=== PATIENT | male | born 1930 | race Caucasian/White ===

== ENCOUNTER 2016-10-17 13:38 | Inpatient (IN) ==
[2016-10-17] MEDS ORDERED: TYLENOL PO PRN (14:13)
[2016-10-17] MEDS ORDERED: NS 1,000 ML IV SCH (14:17)
[2016-10-17] MEDS ORDERED: ZOFRAN IV PRN (14:27)
[2016-10-17 14:48] LABS: MANUAL DIFF NEEDED? NO
[2016-10-17] MEDS: DUONEB (A & A) INH SCH ×3 (14:50→22:51)
[2016-10-17 14:51] LABS: BASO% 0.4 % (0.0-0.8); EOS# 0.04 X1000 (0.0-0.7); EOS% 0.5 % (0.0-10.0); HEMATOCRIT 44.4 % (42.0-52.0); HEMOGLOBIN 14.8 g/dL (14.0-18.0); IMM GRAN# 0.01 X1000 (0.0-0.04); IMM GRAN% 0.1 % (0.0-0.5); LYMPH# 2.26 X1000 (1.2-3.4); MCH 31.7 PG (27-31); MCHC 33.3 g/dL (33-37); MCV 95.1 FL (81-99); MONO% 10.6 % (1.7-9.3); MPV 11.9 FL (7.4-10.4); NEUT% 58.4 % (42.2-75.2); PLT 129 X1000 (130-400); RBC 4.67 XMIL (4.7-6.1)
--- NOTE | 2016-10-17 14:53 | Diag Imaging Result Doc PS360 ---
EXAM: CHEST-2 VIEWS HISTORY: Pneumonia TECHNIQUE: PA and lateral chest COMMENT: There is still some ill-defined opacity over the lower left chest and fibrotic appearing opacities present in the right lower chest particularly laterally. Some slight decrease in the opacification of the left lower lobe has occurred since 09/27/2015, however some of this may be due to differences in inspiration. IMPRESSION: Pleural and parenchymal fibrosis. Electronically signed by Orestes Carpio 10/17/2016 2:51 PM
--- NOTE | 2016-10-17 15:05 | HISTORY AND PHYSICAL ---
PRIMARY CARE PHYSICIAN: Dr. Valiente. CHIEF COMPLAINT: Sent from his primary care physician's office for a left lower lobe pneumonia. HISTORY OF PRESENTING ILLNESS: This is an 86-year-old morbidly obese, male, who presents from his primary care physician's office today when he states that he had been at home for the past couple of days worsening with a cough, nonproductive primarily, shortness of breath, subjective fever. When he got to his primary care physician's office they did a chest x-ray and some blood work. The chest x-ray was read by the physician in the office as a left lower lobe pneumonia and so he felt that he needed to be a direct admitted to the hospital for further evaluation and treatment. Currently we do not have any workup at this time. PAST MEDICAL HISTORY: Rheumatoid arthritis, coronary artery disease, osteoarthritis, hypertension, and hyperlipidemia. PAST SURGICAL HISTORY: Skin cancer removal. FAMILY HISTORY: Noncontributory. SOCIAL HISTORY: Currently lives with . Denied any tobacco, alcohol, or illicit drug use. ALLERGIES: Codeine, penicillin, erythromycin, and streptomycin. HOME MEDICATIONS: A current list will be obtained and we will restart those as appropriate. LABORATORY DATA: Will be obtained as a CBC, CMP, 2 view chest x-ray, blood cultures x2, and a sputum culture. REVIEW OF SYSTEMS: He was positive for a subjective fever, cough nonproductive , shortness of breath. Denied any blurred vision, dizziness, chest pain, abdominal pain, constipation, diarrhea, burning or hurting with urination. PHYSICAL EXAMINATION: VITAL SIGNS: On arrival, he had a temperature of 98.3 degrees, pulse 69, respirations 18, blood pressure 155/91, saturating 100% on room air. GENERAL: This is an 86-year-old morbidly obese, male, who is lying in the bed, and answers questions appropriately. HEENT: Normocephalic and atraumatic. Pupils are equal, round, and reactive to light. Extraocular movements are intact. Oropharynx and nares are clear. NECK: Supple. LUNGS: With wheezing throughout entire posterior lung horne. Equal lung expansion and chest wall movement noted. HEART: Regular rate and rhythm. No murmurs, rubs, or gallops. ABDOMEN: Soft, nontender, nondistended. Bowel sounds are present x4 quadrants. EXTREMITIES: No clubbing, cyanosis, or edema. NEUROLOGICAL: The cranial nerves 2-12 appear grossly intact. ASSESSMENT: 1. A left lower lobe pneumonia per chest x-ray at primary care physician's office today. 2. Dyspnea. 3. Cough. 4. Hypertension. Further diagnosis is after obtaining the laboratory and x-ray data. PLAN: He has been admitted to the medical unit. Placed on telemetry. O2 per protocol. Healthy heart diet. We will obtain a CBC, CMP, sputum culture, blood cultures x2, 2- view chest x-ray. We will place on Levaquin 750 mg IV q.24h, DuoNeb q.4h, normal saline at 50 mL an hour, and Tylenol 650 mg p.o. q.4h p.r.n., Zofran 4 mg IV q.4h p.r.n., and further orders pending review of laboratory data and x-ray. Dictated by NEELAM Hinojosa for Missael Bryant MD cc: NEELAM Hinojosa MD Thomas E. Lockard, DO will pursue chest CT, because his chest Xray just shows fibrosis and not clear pneumonia, this may be why he has not improved, otherwise agree with above APENOT MTDD
[2016-10-17 15:14] LABS: ALBUMIN 4.1 g/dL (3.5-5.0); POTASSIUM 4.8 mmol/L (3.5-5.1); TOTAL BILIRUBIN 0.4 mg/dL (0.20-1.00); TOTAL PROTEIN 7.1 g/dL (6.3-8.3)
[2016-10-17] MEDS: ROCEPHIN 1 GM/NS 1 GM/50 ML IVPB IV SCH (16:23)
[2016-10-17] MEDS: LEVAQUIN 750 MG/D5W 750 MG/150 ML IVPB IV SCH (18:17)
[2016-10-17] MEDS ORDERED: LASIX PO PRN (19:43)
[2016-10-17] MEDS ORDERED: ZANAFLEX PO PRN (19:54)
[2016-10-17] MEDS: TOPROL XL PO SCH (20:19)
[2016-10-17] MEDS: FISH OIL CONCENTRATE PO SCH (20:19)
[2016-10-17] MEDS: VITAMIN C PO SCH (20:19)
[2016-10-18] MEDS: DUONEB (A & A) INH SCH ×5 (03:04→20:02)
[2016-10-18 05:59] LABS: HEMATOCRIT 41.4 % (42.0-52.0); HEMOGLOBIN 13.3 g/dL (14.0-18.0); MCH 30.7 PG (27-31); MCHC 32.1 g/dL (33-37); MCV 95.6 FL (81-99); MPV 11.9 FL (7.4-10.4); RBC 4.33 XMIL (4.7-6.1)
[2016-10-18 06:05] LABS: CALCIUM 8.6 mg/dL (8.8-10.2); POTASSIUM 4.1 mmol/L (3.5-5.1)
--- NOTE | 2016-10-18 08:34 | Diag Imaging Result Doc PS360 ---
EXAM: CT THORAX W/CONTRAST HISTORY: pneumonia TECHNIQUE: Images were obtained from the lung apices through bases following IV contrast as per standard protocol. COMPARISON: 04/14/2015 FINDINGS: There are peripheral increased reticular markings some associated with honeycombing consistent with pulmonary fibrosis. This is most marked within the left upper lobe, peripheral right middle lobe, and posterior lower lobes. This is not significantly changed when compared with prior study and may actually appear slightly improved due to improved inspiration. No pleural effusions or pneumothorax. There is stable mild mediastinal lymphadenopathy. No evidence for aortic aneurysm or dissection. There is vascular calcification including coronary artery calcification. No parenchymal masses or new areas of consolidation are identified. IMPRESSION: Stable pulmonary fibrosis. Stable mild lymphadenopathy. No evidence for acute pneumonia. Electronically signed by Jocelin Rivera 10/18/2016 8:32 AM
[2016-10-18] MEDS: TOPROL XL PO SCH ×2 (08:43→21:08)
[2016-10-18] MEDS: FISH OIL CONCENTRATE PO SCH ×2 (08:43→21:08)
[2016-10-18] MEDS: VITAMIN C PO SCH ×2 (08:43→21:08)
[2016-10-18] MEDS: TRICOR PO SCH (08:43)
[2016-10-18] MEDS ORDERED: SOLU-MEDROL IV SCH (09:45)
--- NOTE | 2016-10-18 10:53 | PROGRESS NOTE ---
DATE: 10/18/2016 SUBJECTIVE: The patient resting quietly in bed. OBJECTIVE: Vital Signs: Temperature 98.2 degrees, pulse 84, respirations 18, blood pressure 125/71, satting 100% on room air. General: This is an 86-year-old male, who is lying in the bed, answers questions appropriately. HEENT: Normocephalic and atraumatic. Pupils are equal, round and reactive to light. Extraocular movements are intact. The oropharynx and nares are clear. Neck: Supple. Lungs: With wheezing throughout entire posterior lung horne, maybe slightly improved from admission yesterday. Has a dry nonproductive cough with deep breaths. Equal lung expansion chest wall movement noted. Heart: With regular rate and rhythm. No murmurs, rubs, or gallops. Abdomen: Soft, nontender, nondistended. Bowel sounds are present x4 quadrants. Extremities: No clubbing, cyanosis, or edema. Neurological: The cranial nerves 2-12 are grossly intact. LABORATORY/IMAGING DATA: Shows a white blood cell count of 5.74, hemoglobin 13.3, hematocrit 41.4, platelets 123. Sodium of 136, potassium 4.1, chloride 102, CO2 24, BUN of 21, creatinine 1.5, glucose of 91. He had a chest x-ray yesterday that we did not have the results of when he arrived yesterday that showed an impression of pleural and parenchymal fibrosis. Comment states that there is still some ill-defined opacity over the left lower chest and fibrotic-appearing opacities present in the right lower chest particularly laterally. So, we did a chest CT this morning that just showed an impression of stable pulmonary fibrosis, stable mild lymphadenopathy and no evidence for an acute pneumonia. ASSESSMENT/PLAN: 1. Bronchitis. It was initially felt that the patient may have a left lower lobe pneumonia, but according to x-ray reports there is no definite pneumonia. The patient does not have a history of tobacco use according to him, so we will treat this as a bronchitis. At this time we will continue his intravenous antibiotics and breathing treatments. Will add some Solu- Medrol 80 mg intravenous every 8 hours and recheck labs in the morning. Continue his intravenous antibiotics. 2. Acute kidney injury. Will increase his normal saline from 50 mL an hour to 75 mL an hour, and recheck a basic metabolic panel in the morning. 3. Hypertension. We will continue his current medication regimen. 4. Hyperlipidemia. Aware. We will continue medication regimen. Dictated by NEELAM Hinojosa for Missael Bryant MD cc: NEELAM Hinojosa MD pt examined, agree with above APENOT MTDD
[2016-10-18] MEDS: NS 1,000 ML IV SCH (11:33)
[2016-10-18] MEDS ORDERED: LOVENOX SUBQ SCH (14:30)
[2016-10-18] MEDS: LEVAQUIN 750 MG/D5W 750 MG/150 ML IVPB IV SCH (16:29)
[2016-10-18] MEDS: ROCEPHIN 1 GM/NS 1 GM/50 ML IVPB IV SCH (16:29)
[2016-10-18] MEDS: SOLU-MEDROL IV SCH (19:53)
[2016-10-18] MEDS: PRAVACHOL PO SCH (21:08)
[2016-10-19] MEDS: DUONEB (A & A) INH SCH ×7 (01:17→22:15)
[2016-10-19] MEDS: MUCOMYST 20% SCH (01:18)
[2016-10-19] MEDS: NS 1,000 ML IV SCH (02:19)
[2016-10-19] MEDS: SOLU-MEDROL IV SCH ×3 (03:47→20:43)
[2016-10-19 06:11] LABS: MANUAL DIFF NEEDED? NO
[2016-10-19 06:28] LABS: HEMATOCRIT 41.9 % (42.0-52.0); HEMOGLOBIN 13.5 g/dL (14.0-18.0); IMM GRAN# 0.01 X1000 (0.0-0.04); IMM GRAN% 0.2 % (0.0-0.5); LYMPH# 0.78 X1000 (1.2-3.4); LYMPH% 14.7 % (20.5-51.1); MCH 30.5 PG (27-31); MCHC 32.2 g/dL (33-37); MCV 94.6 FL (81-99); MONO# 0.21 X1000 (0.11-0.59); MPV 11.5 FL (7.4-10.4); NEUT% 81.1 % (42.2-75.2); PLT 126 X1000 (130-400); RBC 4.43 XMIL (4.7-6.1)
[2016-10-19 06:51] LABS: AGAP 11; BUN 20 mg/dL (8-22); CALCIUM 8.9 mg/dL (8.8-10.2); CHLORIDE 108 mmol/L (98-107); COSMO 288; POTASSIUM 4.4 mmol/L (3.5-5.1); SODIUM 142 mmol/L (136-145); TCO2 23 mmol/L (25-35)
[2016-10-19] MEDS: FISH OIL CONCENTRATE PO SCH ×2 (10:09→20:46)
[2016-10-19] MEDS: TRICOR PO SCH (10:09)
[2016-10-19] MEDS: VITAMIN C PO SCH ×2 (10:09→20:46)
[2016-10-19] MEDS: TOPROL XL PO SCH ×2 (10:10→20:47)
--- NOTE | 2016-10-19 13:58 | PROGRESS NOTE ---
DATE: 10/19/2016 SUBJECTIVE: Patient has some flushing but overall breathing has improved. OBJECTIVE: Vital signs: Blood pressure 154/87, heart rate 96, respiratory rate 16, temperature 98.3 degrees, 97% on room air. Cardiovascular: Regular rate and rhythm. Pulmonary: Bilateral breath sounds. Clear to auscultation. GI: Soft, nontender, nondistended. Bowel sounds are positive. LABORATORY DATA: White count 5, hemoglobin and hematocrit are 13 and 41, platelets of 126,000. Basic looked okay. PROBLEM LIST: 1. Chronic obstructive pulmonary disease exacerbation. Clinically, he is stabilizing. He seems to be doing okay from that standpoint. 2. Pulmonary fibrosis. He is on steroids, antibiotics, and seems to be doing somewhat better. He specifically described checking him for heart failure. His proBNP is unremarkable or at least it is negative and he had a chest echo I think a couple months ago per his primary mobility architect, who is Dr. Rhodes. He had an echo in June which actually showed a normal EF 60 to 65% with really no significant valvular abnormality so I do not think he has heart failure. 3. Disposition. I think if he is clinically stable in to tomorrow he should be able to go home. cc: Missael Bryant MD
[2016-10-19] MEDS: ROCEPHIN 1 GM/NS 1 GM/50 ML IVPB IV SCH (15:47)
[2016-10-19] MEDS: LEVAQUIN 750 MG/D5W 750 MG/150 ML IVPB IV SCH (17:10)
[2016-10-19] MEDS: MUCINEX PO SCH (20:45)
[2016-10-19] MEDS: NEO-SYNEPHRINE 1% NASAL SPRAY NAS SCH (20:45)
[2016-10-19] MEDS: PRAVACHOL PO SCH (20:46)
[2016-10-20] MEDS: CLARITIN PO SCH ×2 (00:39→09:19)
[2016-10-20] MEDS: DUONEB (A & A) INH SCH ×3 (03:30→15:53)
[2016-10-20] MEDS: SOLU-MEDROL IV SCH ×2 (05:28→11:36)
[2016-10-20 07:00] LABS: HEMATOCRIT 44.2 % (42.0-52.0); HEMOGLOBIN 14.2 g/dL (14.0-18.0); MCH 30.6 PG (27-31); MCHC 32.1 g/dL (33-37); MCV 95.3 FL (81-99); MPV 11.4 FL (7.4-10.4); RBC 4.64 XMIL (4.7-6.1)
[2016-10-20] MEDS ORDERED: ARIXTRA SUBQ SCH (09:00)
[2016-10-20] MEDS: MUCINEX PO SCH (09:19)
[2016-10-20] MEDS: TOPROL XL PO SCH (09:19)
[2016-10-20] MEDS: FISH OIL CONCENTRATE PO SCH (09:19)
[2016-10-20] MEDS: VITAMIN C PO SCH (09:19)
[2016-10-20] MEDS: TRICOR PO SCH (09:19)
[2016-10-20] MEDS: NEO-SYNEPHRINE 1% NASAL SPRAY NAS SCH (09:22)
[2016-10-20] MEDS: MUCOMYST 20% SCH (12:11)
[2016-10-20 15:29] VITALS: BP 167/80
[2016-10-20] MEDS: ROCEPHIN 1 GM/NS 1 GM/50 ML IVPB IV SCH (15:43)
[2016-10-20] MEDS: LEVAQUIN 750 MG/D5W 750 MG/150 ML IVPB IV SCH (16:42)
--- NOTE | 2016-10-21 09:05 | DISCHARGE SUMMARY ---
ADMISSION DATE: 10/17/2016 DISCHARGE DATE: 10/20/2016 DISCHARGE DIAGNOSES: 1. Pulmonary fibrosis with likely exacerbation. 2. Chronic obstructive pulmonary disease exacerbation with bronchitis. 3. History of rheumatoid arthritis. 4. Hypertension. HISTORY OF PRESENT ILLNESS AND HOSPITAL COURSE: Briefly, this is an 86-year-old male who was a direct admit from Dr. Valiente for pneumonia, failing outpatient therapy. He had progressive shortness of breath. He was placed in the hospital on IV antibiotics, namely Levaquin and Rocephin, and he had a chest x-ray which was read here on the , as pulmonary fibrosis and no pneumonia. We progressed to a chest CT on the , which showed stable pulmonary fibrosis, stable mild lymphadenopathy but no acute pneumonia, and that was on the . He slowly clinically improved. He did have some intermittent wheezing. We had him on some steroids and breathing treatments. He had a little bit of acute kidney injury with a creatinine that went up to 1.5, but improved with hydration. On the day of discharge, which was the , he had clear breath sounds. No wheezing. GI was soft, nontender, nondistended. He was afebrile. He did have some mild leukocytosis at 13.6, but he had been on steroids for several days, and I felt like that was likely the contributor. Clinically, he had really stabilized. He did have a little bit of drop in his platelet count, but on the day of discharge, his platelet count was normal at 153. DISCHARGE MEDS: O[place]cia, per previous recommendations; vitamin C 500 b.i.d.; aspirin 325 daily; Omnicef 300 p.o. b.i.d.; fenofibrate 145 daily; Lasix 20 daily; Toprol-XL 50 b.i.d.; [place] acids 1 b.i.d.; Pravachol 40 daily, and a prednisone taper. I think he was also on DuoNeb as an outpatient. I am going to give him a Combivent inhaler and we will follow. FOLLOWUP: He is to follow up, he has a airplane pilot, I believe in [place], in about 15 minutes, so he was encouraged to follow up with that physician to re-evaluate his pulmonary fibrosis and Dr. Valiente. TIME SPENT: A 32-minute discharge. cc: Missael Bryant MD
== END 2016-10-20 18:37 | disposition home or self-care (01) ==
LOC: P.DIRADM 13:38 → P.MEDSURG 13:41
PROVIDERS: ATTEND Internal Medicine

== ENCOUNTER 2019-03-29 09:12 | Inpatient (IN) ==
[2019-03-29] MEDS ORDERED: CATAPRES PO ONE (09:38)
[2019-03-29 10:11] LABS: URINE SOURCE CLEAN CATCH
--- NOTE | 2019-03-29 10:11 | PROVIDER DOCUMENTATION ---
HPI-General Adult - General Chief Complaint: B/P Problems Stated Complaint: REVISIT / RETURN Time Seen by Provider: 03/29/19 09:30 Source: patient, family Allergies/Adverse Reactions: Patient Allergies Allergy/AdvReac Type Severity Reaction Status Date / Time codeine Allergy Mild HEADACHE Verified 06/11/17 13:58 Penicillins Allergy Mild Unknown Verified 06/11/17 13:58 erythromycin base Allergy Unknown UN Verified 06/11/17 13:58 [Erythromycin Base] streptomycin [Streptomycin] Allergy Unknown UN Verified 06/11/17 13:58 Home Medications: Home Medication List Medication Instructions Recorded Confirmed Last Taken Type Aspirin 81 mg PO DAILY 03/06/13 06/11/17 06/11/17 07:00 History Fenofibrate Nanocrystallized 145 mg PO DAILY 09/17/15 06/11/17 10/17/16 History [Tricor] Furosemide [Lasix] 40 mg PO DAILY PRN 09/17/15 06/11/17 06/11/17 07:00 History [place]-3 Fatty Acids/Fish Oil [Fish 1 cap PO BID 10/17/16 06/11/17 06/11/17 07:00 History Oil 1,000 mg Capsule] D-Methorphan/P-Epd/Bpm [Bromfed Dm 5 ml PO Q4H PRN #120 ml 02/24/17 06/11/17 Unknown Rx Liquid] Fluticasone 50 Mcg Nasal [place] 1 spray DENISE DAILY 02/24/17 06/11/17 Unknown History [Flonase] Losartan Potassium 50 mg PO DAILY 02/24/17 06/11/17 06/11/17 06:30 History Potassium Chloride 10 meq PO DAILY 02/24/17 06/11/17 06/10/17 07:00 History Meloxicam [Mobic] 15 mg PO DAILY 06/11/17 06/11/17 06/11/17 07:00 History Lactulose 30 ml PO BID #120 udc 06/14/17 Unknown Rx Metoprolol Succinate [Toprol Xl] 50 mg PO BID #60 tab.er.24h 06/14/17 Unknown Rx Hydrocodone/APAP 5 mg/325 mg 1 - 2 tab PO Q6H PRN PRN #18 tab 03/24/19 Unknown Rx [[place]-5] - History of Present Illness -Gen Adult Nature of Presenting Problems: [id number] presents to the ER with c/o increased B/P reading for the past week. This is his second visit to the ER. He was seen on 03/24 for the same problem. He is c/o dizziness and HENRY. He also reports subconjuctival hemorrhaging that appeared yesterday in his left eye. B/P on arrival was 225/109 in triage. He states he saw his PCP on and was started on Lisinopril 20mg BID in addition to his metoprolol and losartan. He reports increased swelling and edema. He denies any CP, SOB, or other anginal equivalence. Location of Pain/Injury: reports: head, generalized Onset/Duration: reports: 1 week ago Associated Symptoms: reports: dizziness, headaches, other Similar Symptoms Previously?: Yes Recently seen or treated by another doctor?: Yes Review of Systems - Adult - REVIEW OF SYSTEMS - ADULT Constitutional: reports: see HPI. denies: chills, fever Eyes: reports: see HPI. denies: decreased vision, blurred vision, double vision Ears, Nose, Mouth & Throat: reports: no symptoms reported Cardiovascular: reports: see HPI, edema (+2). denies: chest pain, orthopnea, palpitations, syncope Respiratory: reports: no symptoms reported. denies: chronic cough, cough, dyspnea on exertion, wheezing Gastrointestinal: reports: see HPI. denies: abdominal pain, diarrhea, nausea, vomiting Genitourinary: reports: no symptoms reported, frequent UTI's, urinary retention Musculoskeletal: reports: no symptoms reported Integumentary: reports: no symptoms reported Neurological: reports: see HPI, dizziness/vertigo, headache/migraines Psychiatric: reports: no symptoms reported Endocrine: reports: no symptoms reported Hematologic/Lymphatic: reports: no symptoms reported Allergic/Immunologic: reports: no symptoms reported All Other Systems: Reviewed and Negative Past History - Adult - PAST MEDICAL HISTORY-ADULT Review of Records: reports: Old Records Reviewed, Nursing Assessment Review, Medications Reviewed, Social history reviewed & non-contributory. Major Childhood Illnesses: reports: denies history Cardiovascular: reports: CAD, HTN, hyperlipidemia, [place] Respiratory: reports: COPD Gastrointestinal: reports: denies history Obstetrical/Gynecological: reports: denies history Genitourinary: reports: denies history Musculoskeletal: reports: denies history Neurological: reports: denies history Endocrine/Immune: reports: Diabetes Other Conditions: reports: other cancer (skin) - PRIOR SURGERIES/PROCEDURES Surgical/Procedure History: reports: cardiac stent, other - PRIOR HOSPITALIZATIONS Prior Hospitalizations: reports: for similar symptoms - IMMUNIZATION STATUS Childhood Immunizations: See Nurse Assessment Flu Vaccine: See Nurse Assessment - FAMILY HISTORY Family History: reviewed, not pertinent - SOCIAL HISTORY Smoking: denies Substance Use: denies Living Situation: family Physical Exam-General - PHYSICAL EXAM-ADULT Initial Vital Signs Reviewed: Yes - CONSTITUTIONAL General Appearance: alert, mild distress - EYES Eyes: PERRL/EOMI, subconjunctival hemorrhage (left eye) - HEAD, EARS, NOSE, MOUTH & THROAT HENMT: normocephalic/atraumatic, moist mucous membranes, TMs normal - NECK Neck: full range of motion, supple. negative: lymphadenopathy - RESPIRATORY Respiratory: lungs clear, normal breath sounds - CARDIOVASCULAR Cardiovascular: regular rate, rhythm. negative: no edema (+2, +3 pitting lower extremity) - GASTROINTESTINAL (ABDOMEN) Abdominal Exam: non tender, soft - SKIN Integumentary: normal color, warm/dry - NEUROLOGIC Neurologic: grossly normal - PSYCHIATRIC Psych/Mental Status: normal thought content, normal thought process Progress - PLAN OF CARE/RESULTS Progress/Plan/Lab Results: Vital Signs - 8 hr 03/29/19 09:18 Temperature 98 F Pulse Rate 72 Respiratory Rate 18 Blood Pressure 225/109 O2 Sat by Pulse Oximetry 96 Orders Category Date Time Status Nursing- Obtain EKG ONCE Care 03/29/19 09:42 Active CHEST-2 VIEWS [RAD] Stat Exams 03/29/19 09:42 Ordered BNP [PRO B-NATRIURETIC PEPTIDE] Stat Lab 03/29/19 10:07 Uncollected CBC WITH ELECTRONIC DIFF [HEME] Stat Lab 03/29/19 10:01 Ordered CK PROFILE [SP CHEM] Stat Lab 03/29/19 09:42 Ordered CK TOTAL [CHEM] Stat Lab 03/29/19 09:42 Ordered COMPREHENSIVE METABOLIC PANEL [CHEM] Stat Lab 03/29/19 10:01 Ordered FREE T4 Stat Lab 03/29/19 10:01 Ordered MAGNESIUM [CHEM] Stat Lab 03/29/19 10:01 Ordered PHOSPHORUS [CHEM] Stat Lab 03/29/19 09:42 Ordered TROPONIN T HIGH SENSITIVITY Stat Lab 03/29/19 10:01 Ordered TSH Stat Lab 03/29/19 10:01 Ordered UA NIMS W/REFLEX CULT [URINALYSIS] Stat Lab 03/29/19 10:01 Ordered URINE DRUG SCREEN PL Stat Lab 03/29/19 10:01 Ordered Clonidine [Catapres] Med 03/29/19 09:38 Discontinued 0.2 mg PO NOW ONE EKG [EKG] Stat Ther 03/29/19 09:42 Ordered patient to be admitted. Result Diagrams: 03/29/19 10:04 03/29/19 10:04 - XRAY 1 XRAY Study: Chest Impression: See EMR Report ( FINDINGS: There is cardiomegaly and pulmonary vascular congestion. There is hazy interstitial infiltrate diffusely and bilaterally stable from prior. No new consolidations. No significant pleural effusion. IMPRESSION: No change from prior. Pulmonary edema versus fibrosis.) - CONSULTS/PCP/HOSPITALIST Notification #1 *Consult/PCP/Hospitalist*: Dr Méndez Time Discussed: 10:23 Reason/Comments: persistent elevated BP, SOB, weakness Consult Disposition: Admit Departure - Departure Date of Disposition Decision: 03/29/19 Time of Disposition Decision: 13:12 DIAGNOSIS: Pulmonary edema, Weakness generalized Hypertension Qualifiers: Hypertension type: unspecified Qualified Code(s): I10 - Essential (primary) hypertension Disposition: ADMITTED INPATIENT 09 Certified Medical Emergency: Emergent Condition: Critical Referrals and Follow-Ups: Rg Valiente DO [Primary Care Provider] - - Critical Care Note This patient required my direct & personal management of CC.: No Attestation - Physician/ SOHAM Attestation Patient care was provided by Advanced Practice Provider:: Yes Advanced Practice Provider:: Sky Nieves Advanced Practice Provider documentation review:: The Mid-level provider documentation, treatment plan and medical decision making was reviewed by the kandy edmond who agrees with all treatment and medical decision making by the MLP. The physician spent face to face time with patient:: No Advanced Practice Provider documentation review:: Supervising physician onsite and consulted in the evaluation and care of this patient. The physician did not have a face to face encounter with the patient.
[2019-03-29 10:25] LABS: BILIRUBIN URINE NEGATIVE (NEGATIVE); BLOOD URINE NEGATIVE (NEGATIVE); COLOR YELLOW; GLUCOSE URINE NEGATIVE (NEGATIVE); KETONE URINE NEGATIVE (NEGATIVE); LEUKOCYTES URINE NEGATIVE (NEGATIVE); NITRITE URINE NEGATIVE (NEGATIVE); PH URINE 6.5; PROTEIN URINE NEGATIVE (NEGATIVE); SP GRAVITY URINE 1.008; TURBIDITY URINE CLEAR (CLEAR); UROBILINOGEN URINE NORMAL (NORMAL)
[2019-03-29 10:27] LABS: UR EPITHELIAL CELLS <10 /HPF (<10); URINE BACTERIA NEGATIVE /HPF; URINE RBC <10 /HPF (<10); URINE WBC <10 /HPF (<10)
[2019-03-29 10:41] LABS: BASO# 0.03 X1000 (0.0-0.2); BASO% 0.3 % (0.0-0.8); EOS# 0.01 X1000 (0.0-0.7); EOS% 0.1 % (0.0-10.0); HEMATOCRIT 39.4 % (42.0-52.0); HEMOGLOBIN 11.9 g/dL (14.0-18.0); IMM GRAN# 0.05 X1000 (0.0-0.04); IMM GRAN% 0.5 % (0.0-0.5); LYMPH# 1.48 X1000 (1.2-3.4); LYMPH% 14.4 % (20.5-51.1); MCHC 30.2 g/dL (33-37); MCV 92.7 FL (81-99); MONO# 0.74 X1000 (0.11-0.59); MONO% 7.2 % (1.7-9.3); MPV 10.8 FL (7.4-10.4); NEUT# 7.94 X1000 (1.4-6.5); NEUT% 77.5 % (42.2-75.2); PLT 258 X1000 (130-400); RBC 4.25 XMIL (4.7-6.1); RDW 16.3 % (11.5-14.5); WBC 10.25 X1000 (4.8-10.8)
[2019-03-29 10:42] LABS: UR AMPHETAMINES QUAL NONE DETECTED (NONE DETECT); UR BARBITUATES QUAL NONE DETECTED (NONE DETECT); UR BENZODIAZEPIN QUAL NONE DETECTED (NONE DETECT); UR CANNABINOIDS QUAL NONE DETECTED (NONE DETECT); UR COCAINE QUAL NONE DETECTED (NONE DETECT); UR METHADONE QUAL NONE DETECTED (NONE DETECT); UR METHAMPHETAMINE QUAL NONE DETECTED (NONE DETECT); UR OPIATES QUAL PRESUMPTIVE POSITIVE (NONE DETECT); UR OXYCODONE QUAL NONE DETECTED (NONE DETECT); UR PCP QUAL NONE DETECTED (NONE DETECT); UR PROPOXYPHENE QUAL NONE DETECTED (NONE DETECT); UR TCA QUAL NONE DETECTED (NONE DETECT)
[2019-03-29 11:03] LABS: AGAP 13; ALBUMIN 3.8 g/dL (3.5-5.0); ALKALINE PHOSPHATASE 69 U/L (32-122); BUN 21 mg/dL (8-22); CHLORIDE 104 mmol/L (98-107); COSMO 288; CREATININE 0.8 mg/dL (0.7-1.2); ESTIMATED GFR > 60; GLUCOSE 96 mg/dL (70-104); GOT 18 U/L (10-34); GPT 15 U/L (10-44); MAGNESIUM 1.9 mg/dL (1.5-2.7); POTASSIUM 3.9 mmol/L (3.5-5.1); SODIUM 143 mmol/L (136-145); TCO2 26 mmol/L (25-35); TOTAL PROTEIN 6.4 g/dL (6.3-8.3)
[2019-03-29] MEDS ORDERED: LASIX IV ONE (12:07)
[2019-03-29 12:10] LABS: FREE T4 1.51 ng/dL (0.93-1.70); TSH 2.56 uIUmL (0.27-4.20)
--- NOTE | 2019-03-29 12:17 | EKG Report ---
Test Performed on : 03/29/2019 11:55:34 AM Test Reason : cp Blood Pressure : / mmHG Vent. Rate : 062 BPM Atrial Rate : 062 BPM P-R Int : 144 ms QRS Dur : 070 ms QT Int : 394 ms P-R-T Axes : 015 012 033 degrees QTc Int : 399 ms Normal sinus rhythm. Normal ECG When compared with ECG of 24-MAR-2019 15:21, (Unconfirmed) No significant change was found Unconfirmed Result
[2019-03-29] MEDS ORDERED: APRESOLINE IV PRN (12:33)
[2019-03-29] MEDS ORDERED: APRESOLINE IV ONE (12:33)
[2019-03-29] MEDS ORDERED: HYZAAR 50/12.5 MG PO ONE (12:40)
[2019-03-29] MEDS ORDERED: HYDROCHLOROTHIAZIDE PO ONE (13:00)
--- NOTE | 2019-03-29 13:02 | Diag Imaging Result Doc PS360 ---
CHEST-PORTABLE - 03/29/2019 INDICATION: edema COMPARISON: 03/24/2019 FINDINGS: There is cardiomegaly and pulmonary vascular congestion. There is hazy interstitial infiltrate diffusely and bilaterally stable from prior. No new consolidations. No significant pleural effusion. IMPRESSION: No change from prior. Pulmonary edema versus fibrosis. Electronically signed by King Hare 03/29/2019 1:00 PM
--- NOTE | 2019-03-29 20:42 | HISTORY AND PHYSICAL ---
CHIEF COMPLAINT: Hypertension. HISTORY OF PRESENT ILLNESS: The patient is an 88-year-old male who presented to the hospital with markedly elevated blood pressures. He states at home his blood pressure last week was 120 to 130; however, upon arrival today was 225/109. He was seen 2 days ago and blood pressure also was markedly elevated. He apparently has had some subconjunctival hemorrhaging over the past day in his left eye. He was seen by his primary care. He was started on lisinopril 20 b.i.d. in addition to his metoprolol, and I believe losartan. The family notes he has had increased swelling in his lower extremities. The patient himself denies any chest pain, shortness of breath. Actually denies swelling unless specifically asked. ALLERGIES: Codeine, penicillin, erythromycin. MEDICATIONS: Aspirin, fenofibrate 145, Lasix 40, omega-3 fatty acid, losartan 50, potassium, Mobic, lactulose, metoprolol, and [place]. REVIEW OF SYSTEMS: The patient does note that he has frequent urinary tract infections. He does state that he has swelling in his lower extremities on a regular basis. Blood pressures at home typically are 120s to 130s systolic. Per the patient, that is what they were last week. He denies any headaches, blurred vision or change in his vision currently. Denies any focalized numbness, tingling or weakness. Denies any fevers or chills. He does note that he has had some back pain that he was told was arthritis and a pulled muscle. He has been generally weak over the past several days to a week. Denies dysuria. No frequency, urgency, constipation, melena or hematochezia. PAST MEDICAL HISTORY: Coronary artery disease, hypertension, hyperlipidemia, COPD, diabetes, history of skin cancer. He has had cardiac stenting. FAMILY HISTORY: Positive for hypertension. SOCIAL HISTORY: The patient does not smoke, drink or use illicit substances. PHYSICAL EXAMINATION: VITAL SIGNS: Reviewed. Temperature 98 degrees, pulse 72, respiratory rate 18, BP 225/109 to 167/109. GENERAL: The patient is awake, alert. He is in no respiratory distress, seems oriented. HEENT: Normocephalic. NECK: Supple. CARDIOVASCULAR: Regular rate. No murmurs. CHEST: Clear, nonlabored. No wheezing. ABDOMEN: Soft, nondistended, nontender. EXTREMITIES: Moves all extremities. He does have 2+ pitting edema in his bilateral lower extremities. NEUROLOGIC: No changes. ASSESSMENT: 1. Hypertensive urgency. 2. Congestive heart failure with what appears to be an exacerbation. He has 2+ edema in his lower extremities 3. Known coronary artery disease. 4. Chronic obstructive pulmonary disease. 5. Diabetes. PLAN: We are going to admit the patient to the hospital. IV Lasix, place him on blood pressure control, place him on telemetry, get Physical Therapy involved for his frequent falls, and we will follow. cc: Eduardo Méndez MD
[2019-03-30 06:13] LABS: HEMOGLOBIN 12.9 g/dL (14.0-18.0); MCH 29.1 PG (27-31); MCHC 31.5 g/dL (33-37); MCV 92.3 FL (81-99); MPV 10.4 FL (7.4-10.4); RBC 4.44 XMIL (4.7-6.1); RDW 16.4 % (11.5-14.5); WBC 9.48 X1000 (4.8-10.8)
[2019-03-30 07:11] LABS: AGAP 14; ALB/GLOB RATIO 0.9; ALKALINE PHOSPHATASE 60 U/L (32-122); BUN 26 mg/dL (8-22); CALCIUM 8.6 mg/dL (8.8-10.2); CHLORIDE 100 mmol/L (98-107); COSMO 286; ESTIMATED GFR > 60; GLUCOSE 93 mg/dL (70-104); GOT 17 U/L (10-34); GPT 12 U/L (10-44); MAGNESIUM 1.8 mg/dL (1.5-2.7); POTASSIUM 3.2 mmol/L (3.5-5.1); SODIUM 141 mmol/L (136-145); TCO2 27 mmol/L (25-35); TOTAL BILIRUBIN 0.78 mg/dL (0.20-1.00); TOTAL PROTEIN 6.2 g/dL (6.3-8.3)
[2019-03-30] MEDS ORDERED: COZAAR PO SCH (09:00)
[2019-03-30] MEDS: PRINIVIL PO SCH (09:54)
[2019-03-30] MEDS: LASIX PO SCH (09:54)
[2019-03-30] MEDS: TOPROL XL PO SCH (09:54)
[2019-03-30] MEDS ORDERED: MORPHINE IV PRN (14:26)
[2019-03-30] MEDS: NORCO-7.5 PO PRN ×2 (14:40→20:51)
--- NOTE | 2019-03-30 15:41 | PROGRESS NOTE ---
DATE: 03/30/2019 OBJECTIVE: Vital signs: Blood pressure is 130/70, pulse of 95, respirations 24, temperature is 99.7 degrees. General: Mr. Ramos is an 88-year-old, elderly male. He is in bed. Complains of mild pain to the lower back. Neck: Supple. No JVD. Chest: Good air entry bilaterally. There are no crepitations and no rhonchi. Cardiovascular: Regular rate and rhythm. No murmurs. No rubs. No gallops. GI: Abdomen is soft. It is distended. Nontender. Bowel sounds are present. Extremities: About 1+ to 2+ pedal edema bilaterally. TRAFFIC ANALYST: Patient is awake, alert, oriented. Musculoskeletal: There is remarkable tenderness in the lower back on the spinal processes of the lumbar spine as well as the paraspinal muscle. I was not able to appreciate any weakness in any of the lower extremities. Reflexes seem to be intact and sensation is intact in the lower extremities. The patient denies any urinary or rectal incontinence. IMAGING DATA: Chest x-ray which was done this morning shows hazy interstitial infiltrate diffusely and bilateral, stable from prior. Review of imaging studies prior, there was a lumbar spine which was apparently done on the of this month. That was just about 6 days ago. It showed advanced multilevel degenerative disk disease. No evidence of acute osseous abnormality. A CT scan of the abdomen and pelvis showed advanced uncomplicated diverticulosis. There was a mention of multiple renal cysts bilaterally, some are probably containing proteinaceous debris or blood clots, but there is no peripheral enhancement. Kidneys are grossly unremarkable otherwise. EKG which was done yesterday shows a normal sinus rhythm. ASSESSMENT: 1. Severe uncontrolled hypertension on presentation. Patient has been started back on medications and some have also been added to it. Blood pressures are a lot better now. 2. Mild fluid overload. Presumably from congestive heart failure with preserved ejection fraction. 3. Known history of coronary artery disease. 4. 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 On home 2 oxygen. 5. Diabetes mellitus, controlled. 6. Obesity with body mass index of 33.9. 7. History of atrial fibrillation. Currently patient is in sinus. He is at home on metoprolol and Eliquis for stroke prophylaxis. 8. Severe lower back pain, most likely related to the severe multilevel degenerative disk disease. The patient did refer that he was not able to pull himself up. Questionable if there was any weakness. We are going to get an MRI of his lower back to ensure that there are no cord issues tomorrow. PLAN: So in general, I think Mr. Ramos is doing well. He continues to have remarkable lower back pain. I have gone up on his pain medicine. We started him back on his home medication for blood pressure control. We have added spironolactone for adequate pressure control. We will get an MRI tomorrow morning. The patient will be evaluated by physical therapy tomorrow and consult Social Work for rehab placement. cc: Manny Xiao MD
[2019-03-30] MEDS: PATIENT'S OWN MED LEFT EYE SCH (16:54)
[2019-03-30] MEDS: LUMIGAN 0.01% OPH SOLUTION BOTH EYES SCH (20:52)
[2019-03-30] MEDS: PERICOLACE PO SCH (20:52)
[2019-03-30] MEDS: ELIQUIS PO SCH (20:52)
[2019-03-30] MEDS ORDERED: LUMIGAN 0.01% OPH SOLUTION BOTH EYES SCH (21:00)
[2019-03-31] MEDS: NORCO-7.5 PO PRN ×2 (04:40→20:48)
[2019-03-31] MEDS: MIRALAX PO SCH (08:25)
[2019-03-31] MEDS: LASIX PO SCH (08:26)
[2019-03-31] MEDS: TOPROL XL PO SCH (08:26)
[2019-03-31] MEDS: PRINIVIL PO SCH (08:26)
[2019-03-31] MEDS: TRICOR PO SCH (08:26)
[2019-03-31] MEDS: ASPIRIN EC PO SCH (08:26)
[2019-03-31] MEDS: ALDACTONE PO SCH (08:26)
[2019-03-31] MEDS: ELIQUIS PO SCH ×2 (08:26→20:48)
[2019-03-31] MEDS: PERICOLACE PO SCH ×2 (08:26→20:48)
[2019-03-31] MEDS: PATIENT'S OWN MED LEFT EYE SCH ×3 (08:30→16:03)
[2019-03-31] MEDS: ZOFRAN IV PRN (13:22)
--- NOTE | 2019-03-31 14:40 | Diag Imaging Result Doc PS360 ---
EXAM: KUB ABDOMEN 03/31/2019 HISTORY: SBO TECHNIQUE: KUB COMMENT: There is some stool in the colon without evidence of dilatation. This is improved since 09/26/2015. No evidence of gastric or small bowel dilatation is present. There is no evidence of organomegaly or mass. IMPRESSION: No evidence of obstruction. Electronically signed by Orestes Carpio 03/31/2019 2:38 PM
--- NOTE | 2019-03-31 15:11 | Diag Imaging Result Doc PS360 ---
EXAM: MRI LUMBAR SPINE W/WO CONTRAST 03/30/2019 HISTORY: severe lumbar pain with leg weakness TECHNIQUE: T1-T2 and STIR sagittal, T1 and T2 axial, post gadolinium-enhanced T1 sagittal fat sat and axial T1. COMMENT: There is curvature of the lumbar spine with convexity to the left. There is some bone marrow edema and an apparent fracture line paralleling the lower endplate at L1. No intrathecal masses or signal abnormalities are present. At the L1-2 level there is no spinal or foraminal stenosis. At L2-3 there is posterior osteophyte formation without evidence of spinal or foraminal stenosis. At L3-4 there is no evidence of spinal or foraminal stenosis. L4-5 there is disc space narrowing and posterior osteophyte formation with some impingement on the exiting L4 nerve root on the left. The foramina appear to be patent however and there is no evidence of spinal stenosis. At L5-S1 there is no evidence of spinal or foraminal stenosis. There is gadolinium enhancement in the lower endplate at L1. No abnormal gadolinium enhancement is present intrathecally. IMPRESSION: Minimally displaced inferior endplate compression fracture of L1. No evidence of spinal stenosis. Osteophytic encroachment on the exiting L4 nerve root on the left. Electronically signed by Orestes Carpio 03/31/2019 3:09 PM
[2019-03-31] MEDS ORDERED: MIRALAX PO SCH (15:45)
[2019-03-31] MEDS: LUMIGAN 0.01% OPH SOLUTION BOTH EYES SCH (20:48)
[2019-04-01] MEDS: ZOFRAN IV PRN ×2 (01:11→08:23)
--- NOTE | 2019-04-01 07:56 | EKG Report ---
Test Performed on : 04/01/2019 07:46:12 AM Test Reason : cp Blood Pressure : / mmHG Vent. Rate : 113 BPM Atrial Rate : 375 BPM P-R Int : 000 ms QRS Dur : 078 ms QT Int : 332 ms P-R-T Axes : 000 011 237 degrees QTc Int : 455 ms Atrial fibrillation. with rapid ventricular response. Marked ST abnormality, possible inferior subendocardial injury Abnormal ECG When compared with ECG of 29-MAR-2019 11:55, (Unconfirmed) Atrial fibrillation. has replaced Sinus rhythm. Vent. rate has increased BY [address] now depressed in Inferior leads ST now depressed in Anterolateral leads T wave inversion now evident in Lateral leads Confirmed by Maxim TAVAREZ, River Melvin ([id number]) on 04/03/2019 7:28:48 AM
[2019-04-01] MEDS: PERICOLACE PO SCH ×2 (09:22→20:49)
[2019-04-01] MEDS: ASPIRIN EC PO SCH (09:22)
[2019-04-01] MEDS: LASIX PO SCH (09:22)
[2019-04-01] MEDS: ALDACTONE PO SCH (09:22)
[2019-04-01] MEDS: ELIQUIS PO SCH ×2 (09:22→20:49)
[2019-04-01] MEDS: PRINIVIL PO SCH (09:22)
[2019-04-01] MEDS: TRICOR PO SCH (09:22)
[2019-04-01] MEDS: TOPROL XL PO SCH (09:22)
[2019-04-01] MEDS: PATIENT'S OWN MED LEFT EYE SCH ×3 (09:23→17:22)
[2019-04-01] MEDS: MIRALAX PO SCH (09:23)
[2019-04-01] MEDS ORDERED: MAGNESIUM SULFATE 2 GM/S.W.I. 2 GM/50 ML IVPB IV ONE (10:31)
[2019-04-01] MEDS ORDERED: POTASSIUM CHLORIDE 20% LIQUID PO SCH (10:45)
--- NOTE | 2019-04-01 11:15 | CARDIOLOGY CONSULTATION ---
DATE: 04/01/2019 CHIEF COMPLAINT ON PRESENTATION: Hypertension. HISTORY OF PRESENT ILLNESS: Mr. Ramos is an 88-year-old, white male with a history of coronary disease and paroxysmal atrial fibrillation, who presents for evaluation of hypertension. He checked his blood pressure at home, and it was in the 230 range systolic. The patient was not symptomatic at that time. He was not having any pain. He has had periodic palpitations in the last 24 hours it sounds like, and has a history of paroxysmal atrial fibrillation, and has not missed any doses of his Eliquis in the last month that he is aware of. He is currently on Eliquis, with the last dose received this morning. He has no orthopnea. He is lying flat in bed. PAST MEDICAL HISTORY: Significant for: 1. Coronary disease. His last cardiac catheterization was in 2012 that demonstrates essentially no visible coronary disease, with a patent stent identified in the proximal LAD. Normal LV function. Normal LVEDP on that study. 2. History of myocardial infarction. 3. COPD. 4. Pulmonary fibrosis. 5. Paroxysmal atrial fibrillation. 6. Hypertension. 7. Hyperlipidemia. 8. Rheumatoid arthritis. 9. Morbid obesity. SOCIAL HISTORY: He is . His is present. He does not smoke. REVIEW OF SYSTEMS: A 10-system review of systems is negative, except for those things mentioned in the HPI. FAMILY HISTORY: Significant for hypertension. PHYSICAL EXAMINATION: Vital Signs: The patient is afebrile, heart rate 102, blood pressure 121/86. General: He is in no acute distress. HEENT: Oropharynx is moist. Poor dentition. Eye examination shows pink conjunctivae, white sclerae. Neck: No obvious thyromegaly or thyroid tenderness. Cardiovascular: He is in an irregularly irregular rhythm. He has no obvious murmurs. He has no S3. He has no lower extremity edema. Chest: Clear bilaterally. He has no increased work of breathing. Abdomen: Soft, nontender, nondistended. He has no obvious organomegaly. Skin: Warm and dry throughout without any rashes. Neurological: Moving all extremities well. No lateralizing deficits. Psychiatric: He is alert, oriented, pleasant. He has a normal mood and affect. PERTINENT DATA: His EKG on presentation on 03/29/2019 demonstrates sinus rhythm at 62 beats per minute. His subsequent EKG on 04/01/2019 demonstrated what appeared to be rapid atrial fibrillation, rate of 113 beats per minute. His abdomen x-ray demonstrated no evidence of any obstruction. Chest x-ray on presentation demonstrated pulmonary edema versus fibrosis. His lab data shows a white count of 9.4, hematocrit of 41, platelet count of 226,000. His sodium is 141, potassium 3.2, BUN 26, creatinine is 1. His magnesium level is 1.8. His albumin is 3.0. TSH is normal. ASSESSMENT: Mr. Ramos is an 88-year-old gentleman who presented with rapid atrial fibrillation. PLAN: At this point, we will proceed with cardioversion. I have initiated him on sotalol at a dose of 80 mg b.i.d. I have discontinued his metoprolol. His presenting EKG had a QTc of 399. Risks, benefits, and alternatives to the procedure have been discussed with the patient, and he agrees to proceed. I have repleted his electrolytes. Again, he has been on anticoagulation. He should not require a transesophageal echocardiogram. cc: Moo Orourke MD
[2019-04-01] MEDS: BETAPACE PO SCH ×2 (11:36→21:03)
[2019-04-01] MEDS: CARDIZEM PO SCH ×2 (11:36→14:55)
[2019-04-01] MEDS ORDERED: DIPRIVAN 1% ONE (13:15)
[2019-04-01] MEDS ORDERED: KLOR-CON PO ONE (14:38)
--- NOTE | 2019-04-01 15:09 | PROGRESS NOTE ---
DATE: 04/01/2019 SUBJECTIVE: I have seen and examined Mr. Ramos today. The and the son were both at the bedside at the time of the encounter Mr. Ramos refers to be doing a lot better. He said last night he did have an episode of chest discomfort and when they did an EKG he was in atrial fibrillation RVR. This morning he continues to be in atrial fibrillation, rate was somewhere around 110, 109, and I have consulted Cardiology. OBJECTIVE: Vital signs: Blood pressure is 121/86, pulse of 102, respirations 18, temperature 98.2 degrees. General: Mr. Ramos is an 88-year-old, elderly, gentleman. He is in bed, no distress. HEENT: Mucosa is pink and moist. Anicteric. Acyanotic. Neck: Supple. Chest: Good air entry bilaterally. Few crackles in the posterior lung horne. Cardiovascular: Irregularly irregular but no murmurs, no rubs, and no gallops. GI: Abdomen is soft. It is slightly distended but nontender. Bowel sounds present. Extremities: There is 1+ pedal edema bilaterally. HAND PATCHER: Patient is awake, alert, and oriented. No focal deficits. Back: There is mild tenderness to the lower back. LABORATORY DATA: The troponin has gone up to 88. IMAGING STUDIES: No imaging studies today. The patient had an MRI of the back on the which showed minimally displaced inferior endplate compression fracture of L1. No evidence of spinal stenosis. There was also osteophytic encroachment on the exit L4 root on the left. ASSESSMENT: 1. Severe uncontrolled hypertension on presentation, improved. 2. Mild fluid overload secondary to congestive heart failure with preserved ejection fraction. 3. History of coronary artery disease, stable. Last night the patient did have mild chest discomfort which I think was tachyarrhythmia induced. However, we will get troponins and get Cardiology also to evaluate. The patient is already on metoprolol. 4. Diabetes mellitus, controlled. 5. History of paroxysmal atrial fibrillation. The patient came in, he was in sinus. Last night he went into atrial fibrillation RVR. I have started him on p.o. Cardizem and we have consulted Cardiology. Patient was already on metoprolol and Eliquis for stroke prophylaxis. 6. 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 There is also osteophytic encroachment on L4 root. The patient, however, does not have any neurological deficit in the lower extremities and he refers the back pain has significantly improved. PLAN: So in general, I think Mr. Ramos is doing fairly okay. He went into atrial fibrillation RVR last night. We have added diltiazem p.o. to his medications. His rate was less than 110 this morning, but it looks like it goes up and down. I have consulted Cardiology to evaluate him. Mr. Ramos is pending transfer to rehab once he is medically stable and he gets approval from insurance. cc: Manny Xiao MD
[2019-04-01] MEDS ORDERED: NS 500 ML IV ONE ×3 (18:50→23:46)
[2019-04-01] MEDS: LUMIGAN 0.01% OPH SOLUTION BOTH EYES SCH (20:55)
--- NOTE | 2019-04-01 22:58 | ECHO REPORT ---
ORDER DATE: 04/01/2019 MEASUREMENTS: Septal thickness 1.6, left ventricular internal diameter end diastole 2.8, left ventricular internal diameter end systole 1.8, aortic root 3.3, left atrium 3.2. SUMMARY: 1. Technically difficult study due to limited acoustic window quality. 2. Mild sclerosis of trileaflet aortic valve demonstrated with adequate aortic valve opening evident. The peak gradient across the aortic valve is 12 mmHg. There is mild aortic regurgitation. Mitral, tricuspid and pulmonic valves are without evidence of structural abnormality with mild tricuspid regurgitation and trace pulmonic insufficiency. The estimated systolic PA pressure by Doppler is 40 mmHg suggesting mild pulmonary hypertension. Aortic root is normal in size. 3. Normal left ventricular chamber size with moderate concentric left hypertrophy is demonstrated. The estimated left ejection fraction is approximately 70%. No regional wall motion abnormality is evident. Doppler suggests grade 1 left ventricular diastolic dysfunction. Left atrium, right atrium and right ventricle are grossly normal in size with grossly preserved right ventricular systolic function. 4. No pericardial effusion. 5. Appearance of inferior vena cava suggests normal central venous pressure. CONCLUSIONS: 1. Technically difficult study. 2. Mild aortic valve sclerosis without stenosis with mild aortic regurgitation. 3. Mild tricuspid regurgitation. 4. Moderate concentric left hypertrophy with estimated ejection fraction at least 70%. 5. Grade 1 left ventricular diastolic dysfunction suggested. cc: MD Manny Lyle MD
[2019-04-02 06:04] LABS: HEMATOCRIT 35.9 % (42.0-52.0); HEMOGLOBIN 11.3 g/dL (14.0-18.0); MCH 29.9 PG (27-31); MCHC 31.5 g/dL (33-37); MPV 11.2 FL (7.4-10.4); RBC 3.78 XMIL (4.7-6.1); RDW 16.4 % (11.5-14.5); WBC 10.17 X1000 (4.8-10.8)
[2019-04-02 06:24] LABS: ALBUMIN 2.4 g/dL (3.5-5.0); CALCIUM 8.4 mg/dL (8.8-10.2); CREATININE 1.7 mg/dL (0.7-1.2); PHOSPHORUS 2.9 mg/dL (2.7-4.5); POTASSIUM 4.1 mmol/L (3.5-5.1)
--- NOTE | 2019-04-02 07:57 | EKG Report ---
Test Performed on : 04/02/2019 06:17:31 AM Test Reason : afib Blood Pressure : / mmHG Vent. Rate : 092 BPM Atrial Rate : 092 BPM P-R Int : 170 ms QRS Dur : 070 ms QT Int : 380 ms P-R-T Axes : 045 000 113 degrees QTc Int : 469 ms Normal sinus rhythm. T wave abnormality, consider lateral ischemia Abnormal ECG When compared with ECG of 01-APR-2019 07:46, (Unconfirmed) Sinus rhythm. has replaced Atrial fibrillation. ST no longer depressed in Inferior leads ST no longer depressed in Anterior leads Confirmed by Maxim TAVAREZ, River Melvin ([id number]) on 04/03/2019 7:29:48 AM
[2019-04-02] MEDS: ALDACTONE PO SCH (08:13)
[2019-04-02] MEDS: ASPIRIN EC PO SCH (08:13)
[2019-04-02] MEDS: TRICOR PO SCH (08:13)
[2019-04-02] MEDS: ELIQUIS PO SCH ×2 (08:13→21:12)
[2019-04-02] MEDS: PERICOLACE PO SCH ×2 (08:14→21:31)
[2019-04-02] MEDS: PATIENT'S OWN MED LEFT EYE SCH ×3 (08:14→16:41)
[2019-04-02] MEDS: MIRALAX PO SCH (08:14)
[2019-04-02] MEDS: NS 1,000 ML IV SCH ×2 (10:01→22:05)
--- NOTE | 2019-04-02 11:50 | PROGRESS NOTE ---
DATE: 04/02/2019 SUBJECTIVE: This morning Mr. Ramos refers to be doing well. He denies any chest pain, no shortness of breath; however, Mr. Ramos refers that yesterday at about a couple minutes to 7, he went to use the restroom. He bared down a lot and then he felt kind of dizzy and almost passed out. Subsequently, his blood pressures have also been on the very low side. Yesterday, he had to be given multiple boluses of IV fluids. OBJECTIVE: Vital Signs: This morning, blood pressure is 111/62, pulse of 92, respirations 16, temperature is 98.1 degrees. General exam: Mr. Ramos is an 88-year-old, elderly gentleman. He is in bed. He is not in any cardiopulmonary distress. HEENT: Mucosa is pink, but slightly dry. Anicteric. Acyanotic. Neck: Supple. Chest: Good air entry bilateral. Did not hear any crackles. No crackles, no crepitations. Cardiovascular: Regular rate and rhythm. No murmurs, no rubs, no gallops. GI/Abdomen: Soft, nontender. Bowel sounds present. Extremities: No pedal edema. Distal pulses present. There is a Leo catheter in place. ASSISTANT CURATOR: Patient is awake, alert, oriented. No focal deficit. Musculoskeletal: Mild tenderness to the lower back. LABS: The patient's intake/output: Urine output was 800. The patient is currently negative balance of 5308. IMAGING STUDIES: Echocardiogram which was done yesterday showed ejection fraction of 70% with mild grade 1 left ventricular dysfunction. This seems to be moderate concentric left ventricular hypertrophy. CURRENT MEDICATIONS: Have all been reviewed. No changes. ASSESSMENT: 1. Severe uncontrolled hypertension on presentation. This is improved. Unfortunately, the patient has been quite hypotensive lately so medications have all been withheld. 2. Fluid overload on admission secondary to congestive heart failure with preserved ejection fraction. The patient has been over diuresed. He is currently negative balance of over 5000. He seems to be quite symptomatic, so diuretic therapy has been withheld. 3. Paroxysmal atrial fibrillation. The patient went into rapid ventricular response yesterday. There was a plan to electrically cardiovert him. However, he spontaneously converted to sinus rhythm. He was started on oral Cardizem; this has also been withheld because of the low blood pressure lately. 4. 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 The patient also has osteophyte encroachment on L4, but he has no neurological deficit. He is feeling a whole lot better on conservative management. He has been advised to continue physical therapy and follow up at a later date with orthopedics and/or spine surgeons. 5. Hypotension. Mr. Ramos has been hypotensive almost throughout last night. There is an episode that he probably syncopized yesterday after he used the restroom, which I think it was probably vasovagal, but orthostatic hypotension is also a possibility. I think this is medication induced and intravascular depletion as well. We are going to withhold his blood pressure medications for today. He is going to be gently hydrated overnight and then re- evaluate him in the morning. If he is stable, then we can get him home. If during the course of the day, his blood pressure starts to creep up, we will start him on a very low dose medication and observe him. 6. Acute kidney injury. The patient's creatinine is up to 1.7. He looks dry. He is currently negative balance. I think it is a combination of intravascular depletion and possibly medication induced. We are going to hydrate him overnight and recheck on his creatinine tomorrow morning. If it is trending down, I think he will be safe to be discharged. PLAN: So, in general, Mr. Ramos is an 88-year-old gentleman, who initially got admitted because of extreme hypertension which has improved. Unfortunately during the hospital course, he has become hypotensive. He has become intravascularly depleted. It has affected his kidney some. We are going to observe him overnight. We are going to hydrate him, hold off on the blood pressure medications and re-evaluate him in the morning. If he remains stable, then he can go to rehab. Mr. Ramos is also known to have paroxysmal atrial fibrillation. He went into RVR briefly during the hospital course, but he has spontaneously converted. Cardiology is on board. DISPOSITION: Will be to [facility] rehab hopefully tomorrow if he remains medically stable. cc: Manny Xiao MD MTDD
[2019-04-02] MEDS: ALBUMIN 25% IV SCH ×2 (17:02→17:26)
--- NOTE | 2019-04-02 20:05 | CARDIOLOGY PROGRESS NOTE ---
DATE: 04/02/2019 SUBJECTIVE: Mr. Ramos has had episodic hypotension over the course of the evening and today. We have stopped his antihypertensives as well as his sotalol. He has had periodic episodes of lightheadedness. OBJECTIVE: Afebrile. Heart rate 75. His most recent blood pressure is 93/45. Generally he is in no acute distress. Cardiovascular: He is in a regular rate and rhythm. He has no obvious murmurs. He has no S3. No lower extremity edema. His chest exam is clear bilaterally. He has no increased work of breathing. Abdomen is soft, nontender. LABORATORY DATA: His BUN and creatinine are up from 26 and 1.0 to 56 and 1.7. His albumin level is 2.4. ASSESSMENT AND PLAN: Mr. Ramos is an 88-year-old gentleman who presented with rapid atrial fibrillation. He did receive some diuresis during the course of the hospitalization and is likely volume-depleted, as evidenced by his hypotension and increased BUN and creatinine. I have discontinued the sotalol. He seems to be maintaining sinus rhythm presently. He continues on intravenous fluids, and I will give him a total of 50 g of albumin to hopefully help assist with his blood pressure. He has a normal ejection fraction of 70% on recent echocardiogram. cc: Moo Orourke MD
[2019-04-02] MEDS: LUMIGAN 0.01% OPH SOLUTION BOTH EYES SCH (21:12)
[2019-04-03] MEDS: NORCO-7.5 PO PRN (03:56)
[2019-04-03] MEDS: MIRALAX PO SCH (08:56)
[2019-04-03] MEDS: PERICOLACE PO SCH ×2 (08:56→20:15)
[2019-04-03] MEDS: PATIENT'S OWN MED LEFT EYE SCH ×3 (08:56→16:50)
[2019-04-03] MEDS: ASPIRIN EC PO SCH (08:56)
[2019-04-03] MEDS: TRICOR PO SCH (08:56)
[2019-04-03] MEDS: ELIQUIS PO SCH ×2 (08:56→20:39)
--- NOTE | 2019-04-03 10:04 | PROGRESS NOTE ---
DATE: 04/03/2019 SUBJECTIVE: The patient seems to be more stable today. He has no new complaints. He is not eating too much though. His blood pressure has been more stable today, on the higher side though. For the past couple days, his blood pressure has been low, even to the 70s. I do not have any new lab work today, but his urine output since 3 p.m. yesterday until 9 a.m. today is around 1350 mL, which is around 75 mL/h, which is stable. I will continue to monitor this patient. Pending lab work today. OBJECTIVE: Vital Signs: Temperature 97.7 degrees, pulse 85, respiratory rate 14, blood pressure 154/87, oxygen saturation 98 on 3 L of nasal cannula. HEENT: Head normocephalic. No trauma. PERRLA. Neck: Supple. No JVD. No masses. Central trachea. Chest: Clear to auscultation. No wheezing. No rales. Cardiovascular: RRR. Abdomen: Soft, protuberant, nontender, nondistended. No hepatosplenomegaly. Extremities: No edema, no clubbing, no cyanosis. Neurological: The patient is awake and alert. He is oriented x3. No focal deficits. LABORATORY DATA: Pending lab work at this moment. ASSESSMENT AND PLAN: 1. Severe uncontrolled hypertension on presentation, improved. Unfortunately, for the past few days, he was hypotensive to the 70s, with acute kidney injury. This seems to be better after getting fluids and albumin. This patient is not eating too much. Pending lab work today. 2. Fluid overload on admission secondary to congestive heart failure with preserved ejection fraction. Probably, this patient was over diuresed. Now, we have a negative balance of 4.2 liters. 3. Acute kidney injury. His creatinine went up to 1.7, but his urine output seems to be stable around 75 mL/h. I checked his urine, and it is around 1250 mL since 3 p.m. yesterday until 9 a.m. today. I will wait for the new lab work. 4. Paroxysmal atrial fibrillation. This patient went into rapid ventricular response. Cardiology on board. He seems to be sinus at this moment. He spontaneously converted. 5. 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 The patient also has osteophyte encroachment on L4, but I do not think he has neurological deficits, and actually I am waiting for Physical Therapy to work with this patient. 6. Hypotension. As per #1. Now, his blood pressure is more stable. cc: Jermaine Yuan MD
[2019-04-03 10:35] LABS: AGAP 11; BUN 33 mg/dL (8-22); CALCIUM 8.4 mg/dL (8.8-10.2); CHLORIDE 107 mmol/L (98-107); COSMO 295; CREATININE 0.9 mg/dL (0.7-1.2); ESTIMATED GFR > 60; GLUCOSE 113 mg/dL (70-104); POTASSIUM 3.4 mmol/L (3.5-5.1); SODIUM 144 mmol/L (136-145); TCO2 26 mmol/L (25-35)
[2019-04-03] MEDS: LUMIGAN 0.01% OPH SOLUTION BOTH EYES SCH (20:14)
[2019-04-04 07:30] LABS: AGAP 10; ALB/GLOB RATIO 1.1; ALBUMIN 2.8 g/dL (3.5-5.0); ALKALINE PHOSPHATASE 61 U/L (32-122); BUN 24 mg/dL (8-22); CALCIUM 8.5 mg/dL (8.8-10.2); CHLORIDE 108 mmol/L (98-107); COSMO 292; CREATININE 0.8 mg/dL (0.7-1.2); ESTIMATED GFR > 60; GLUCOSE 94 mg/dL (70-104); GOT 25 U/L (10-34); GPT 13 U/L (10-44); POTASSIUM 3.8 mmol/L (3.5-5.1); SODIUM 145 mmol/L (136-145); TCO2 27 mmol/L (25-35); TOTAL PROTEIN 5.4 g/dL (6.3-8.3)
[2019-04-04] MEDS: PERICOLACE PO SCH (08:34)
[2019-04-04] MEDS: ELIQUIS PO SCH (08:34)
[2019-04-04] MEDS: TRICOR PO SCH (08:34)
[2019-04-04] MEDS: ASPIRIN EC PO SCH (08:34)
[2019-04-04] MEDS: MIRALAX PO SCH (08:34)
[2019-04-04] MEDS: PATIENT'S OWN MED LEFT EYE SCH ×2 (08:35→13:28)
[2019-04-04] MEDS ORDERED: TOPROL XL PO SCH (09:00)
--- NOTE | 2019-04-04 10:58 | DISCHARGE SUMMARY ---
ADMISSION DATE: 03/29/2019 DISCHARGE DATE: 04/04/2019 ADMISSION DIAGNOSES: 1. Hypertensive urgency. 2. Congestive heart failure with what appears to be an exacerbation. 3. Known coronary artery disease. 4. Chronic obstructive pulmonary disease. 5. Diabetes. DISCHARGE DIAGNOSES: 1. Severe uncontrolled hypertension on presentation, which is improved. 2. Fluid volume overload on admission secondary to congestive heart failure with a preserved ejection fraction, currently at a negative balance of 4.2 L as of yesterday. 3. Acute kidney injury. Creatinine went up to 1.7. Urine output stable and creatinine is down to 0.8. 4. Paroxysmal atrial fibrillation. 5. 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 6. Hypotension, resolved. CONSULTATIONS: Moo Orourke. SURGERIES OR PROCEDURES: None. HOSPITAL COURSE: Mr. Damian Ramos is an 88-year-old male, who presented to the emergency department with extremely high blood pressures. His normal blood pressure at home was running 120s to 130s, but when he arrived on the , it was 225/109. So he had a couple of days where his blood pressure kept going up that high. Even had some subconjunctival hemorrhaging to the left eye. Was started on lisinopril after he had seen his primary. That was in addition to the metoprolol and the losartan, but then began to notice he had even more swelling in the lower extremities. He denies shortness of breath or chest pain, but went ahead and came into the hospital because he was unable to control his blood pressure. He was started on IV Lasix, placed on more of a blood pressure control regimen. He has also had complaints of back pain and was found to have an endplate compression fracture of the L1 on an MRI lumbar spine. His blood pressure quickly started to improve. He still had volume overload beginning but continued on Lasix. He had a history of atrial fibrillation or paroxysmal atrial fib, though was in sinus rhythm on metoprolol and Eliquis. Cardiology was consulted on 04/01/2019, had an echocardiogram. EF was 70%. He had a grade 1 diastolic ventricular diastolic dysfunction. Dr. Orourke saw him in Cardiology and he was found to be in atrial fibrillation with RVR, so started him on sotalol at 80 twice a day. Discontinued the metoprolol and had planned to do a cardioversion. However with the sotalol, he converted back to sinus rhythm on his own, so the sotalol was discontinued and he was placed back on the metoprolol. He over diuresed I guess, so he had to have some albumin along with some fluid resuscitation at some point. Albumin level was low. The hypertension was overly controlled. He became hypotensive for a little while and diuretic therapy had to be held. Due to the dehydration, he developed some acute kidney injury. Creatinine jumped up to 1.7, but immediately dropped back down to normal. He has stabilized now. DISCHARGE VITAL SIGNS: Temperature 98 degrees, heart rate 98, respiratory rate 22, blood pressure 164/95, O2 saturation 99%. LABORATORY DATA: On 04/02/2019, white blood cells 10,000, hemoglobin 11, hematocrit 35, platelet count 235,000. On the , today, sodium 145, potassium 3.8, BUN 24, creatinine 0.8, glucose 94, calcium 8.5, bilirubin 0.80, AST 25, ALT 13, albumin is 2.8. PERTINENT IMAGING: On the , chest x-ray: Pulmonary edema versus fibrosis. On the , lumbar spine MRI: Minimally displaced inferior endplate compression fracture of L1. No stenosis. There is an osteophyte encroachment on the exiting L4 nerve root on the left. On the , abdominal x-ray: No evidence of obstruction. On the , echocardiogram was a difficult study, mild aortic valve sclerosis without stenosis with mild aortic regurgitation. There is mild tricuspid regurgitation. There is moderate concentric left hypertrophy with estimated ejection fraction of 70%, and grade 1 left ventricular diastolic dysfunction. EKG: Sinus rhythm, rate 62 on the . EKG: Atrial fibrillation with RVR on the . EKG: Sinus rhythm, rate 92, on the . DISCHARGE MEDICATIONS: 1. [place] 5, 1 to 2 tabs p.o. every 6 hours p.r.n. 2. Lasix 40 mg p.o. daily. Will start taking this medication on 04/07/2019. 3. MiraLAX 17 g p.o. daily. 4. Macie-Colace 1 tablet p.o. twice a day. 5. Lisinopril 21 mg p.o. daily. Will restart taking this medication on 04/07/2019. 6. Tricor 145 mg p.o. daily. 7. Toprol-XL 50 mg p.o. daily. 8. Simbrinza left eye t.i.d., 1 drop. 9. Prednisone 7.5 mg p.o. daily. 10. Eliquis 5 mg p.o. twice daily. 11. Aspirin 81 mg p.o. daily. 12. Arava 20 mg p.o. daily. 13. Lumigan 1 drop both eyes every night. DISCHARGE FOLLOWUPS: 1. Dr. Rhodes. 2. Dr. Valiente. DISCHARGE DIET: Heart healthy, low sodium and fluid restriction of 1500 mL per day. DISCHARGE ACTIVITY: As tolerated to take care of preventing falls. DISCHARGE INSTRUCTIONS: Four ramirez things you will be responsible for at home to successfully manage your condition. 1. Take your medications exactly as prescribed by her physician. 2. Weigh daily and keep a record to take your MD appointments. 3. Stick to your low-salt diet and fluid restrictions. 4. Keep all of your followup appointments. 5. Notify the MD for any of the following: Have a harder time breathing than normal. Have shortness of breath while resting, persistent cough, weight gain of greater than 3 pounds in a day or 5 pounds in a week, swelling to the lower extremities, fever greater than 101 with shortness of breath or chest pain. Refer to the congestive heart failure booklet you were given for more detailed information. If your condition changes, contact physician and/or return to the emergency department. Changes may include, but not limited to shortness of breath, increased fatigue, excessive bleeding, unexplained weight loss or gain, unmanageable pain, signs or symptoms of infection. Obtain a list of physicians who are taking new patients. DISCHARGE DISPOSITION: [facility] in [place]. Dictated by NEELAM Montero for Jermaine Yuan MD cc: NEELAM Montero MD
[2019-04-04 12:06] VITALS: BP 153/78
== END 2019-04-04 14:44 | DRG 292 ==
LOC: P.ED 09:12 → SUATTDRO 13:36 → 2N 13:36
PROVIDERS: ATTEND Internal Medicine